=== PATIENT | male | born 1930 | race Caucasian/White ===

== ENCOUNTER → 2017-03-20 | Outpatient (CLI) | payer MEDICARE ==
[~2017-03-20] MED LIST: ASPI325 PO; Aspir 8181 MG PO; Avodart0.5 MG PO; CARV3.125 PO; CHOL10002 PO; FISH OIL 1,2001 EAC3 PO; GLUCOSAMINE-CH1 EA10 PO; IRON PO; LISI5 PO; LUTEIN6 MG PO; OXYC5 PO; POTASSIUM MAGNESIUM PO; PRED10 PO; SIMV40 PO; Saw Palmetto500 MG PO; TAMS.4ER PO; THERA1 EACH PO; TRILYTE; UBID10 PO; Vitamin B Comple1 EA PO
== END | disposition home or self-care (01) ==
LOC: LAB EV 10:03
DX: S61.001A Unspecified open wound of right thumb without damage to nail, initial encounter (principal)
CPT/HCPCS: 87070; 87075; 87077; 87186; 87205

== ENCOUNTER → 2017-10-13 | Outpatient (CLI) | payer MEDICARE ==
[~2017-10-13] MED LIST changes: -ASPI325 PO; -CHOL10002 PO; -FISH OIL 1,2001 EAC3 PO; +FISH1000 PO; -IRON PO; -LUTEIN6 MG PO; -OXYC5 PO; -POTASSIUM MAGNESIUM PO; -PRED10 PO; -THERA1 EACH PO; -Vitamin B Comple1 EA PO
== END | disposition home or self-care (01) ==
LOC: LAB SHORT 08:31 → PLD 08:31 → EDSTATUS 09:17
DX: L72.0 Epidermal cyst (principal)
CPT/HCPCS: 88304

== ENCOUNTER 2018-09-20 06:51 | Day surgery (SDC) | payer MEDICARE ==
[~2018-09-20] VITALS: Ht 185.4 cm; Wt 87.8 kg
[~2018-09-20 06:51] MED LIST changes: +CHOL10002 PO; +FISH OIL 1,2001 EAC3 PO; -FISH1000 PO; +IRON PO; +LUTEIN6 MG PO; +POTASSIUM MAGNESIUM PO; +THERA1 EACH PO; +Vitamin B Comple1 EA PO
--- NOTE | 2018-09-20 07:35 | NUR ---
Ambulatory in Day Surgery History, Chart, Medications and Allergies reviewed before start of procedure. Lungs clear T/O to Auscultation. Patient confirms NPO status and agrees with scheduled surgery. Pre-Op teaching done. Pt verbalizes understanding.
[2018-09-20] MEDS ORDERED: PRED10 PO (08:11)
--- NOTE | 2018-09-20 09:48 | NUR ---
09/20/18 0948 Alina Leroy PATIENT CONVERTED TO GENERAL ANESTHESIA D/T INABILITY TO REMAIN STILL DURING OPERATIVE PROCEDURE.
--- NOTE | 2018-09-20 11:52 | NUR ---
PT HAS POISEN OAK HE STATES FROM BURNING IT AT HOME SO HE IS ITCHING FACE FACE AND ARMS. PT WAS GIVEN A WASHCLOTH TO DO THIS.
--- NOTE | 2018-09-21 04:38 | NUR ---
SHIFT SUMMARY: PT POD #1 FOR RT TKA. A&O X4. VSS. BRIELLE WRAP CDI WITH POLAR PACK IN PLACE. PAIN MANAGED WITH TORADOL AND 10 MG OXY PER EMAR. PT REFUSING TYLENOL. AMBULATING WITH MINIMAL ASSIST USING FWW. PRISCILLA ACTIVITY WELL. SALINE LOCKED. PRISCILLA FLUIDS, DENIES N/V. PT STATES CHEEKS AND BILAT WRISTS RED R/T POISON OAK. DENIES ITCHING. VOIDING IN URINAL. ADEQUATE URINE OUTPUT. REPORTS SOME BLADDER DISCOMFORT. USING WARM PACK TO AREA FOR COMFORT.
[2018-09-21 05:10] LABS: BASOPHILS ABSOLUTE AUTO 0.01 K/mm3 (0.00-0.23); BASOPHILS PERCENT AUTO 0 % (0-2); EOSINOPHILS PERCENT AUTO 0 % (0-6); Hematocrit 38.2 % (37.0-53.0); Hemoglobin 12.6 g/dL (13.5-17.5); IMMATURE GRAN ABSOLUTE AUTO 0.03 K/mm3 (0.00-0.10); IMMATURE GRAN PERCENT AUTO 0 % (0-1); LYMPHOCYTES ABSOLUTE AUTO 0.43 K/mm3 (0.84-5.20); LYMPHOCYTES PERCENT AUTO 3 % (21-46); MONOCYTES ABSOLUTE AUTO 0.93 K/mm3 (0.16-1.47); MONOCYTES PERCENT AUTO 6 % (4-13); Mean Corpuscular HGB 32.1 pg (26.0-34.0); Mean Corpuscular Volume 97 fL (80-100); Mean Platelet Volume 11.1 fL (9.1-12.4); NEUTROPHILS ABSOLUTE AUTO 13.17 K/mm3 (1.96-9.15); NEUTROPHILS PERCENT AUTO 90 % (41-73); Platelet Count 130 K/mm3 (150-400); RDW Coefficient Variation 12.2 % (11.7-14.2); RDW Standard Deviation 43.9 fL (35.1-46.3); Red Blood Cell Count 3.93 M/mm3 (4.30-5.90); White Blood Cell Count 14.57 K/mm3 (4.00-11.30)
[2018-09-21 05:34] LABS: Anion Gap 6 mmol/L (6-16); Blood Urea Nitrogen 24 mg/dL (8-24); Bun/Creatinine Ratio 25.9 (12.0-20.0); CO2, Blood 29 mmol/L (21-32); Calcium, Blood 8.9 mg/dL (8.5-10.1); Chloride, Blood 104 mmol/L (98-108); Creatinine, Blood 0.93 mg/dL (0.60-1.20); Glomerular Filtration Rate >60 (60-); Glucose, Blood 126 mg/dL (70-99); Magnesium, Blood 2.1 mg/dL (1.6-2.4); Potassium, Blood 4.4 mmol/L (3.5-5.5); Sodium, Blood 139 mmol/L (136-145)
--- NOTE | 2018-09-21 14:12 | NUR ---
bladder scan shows >515ml. dr kendall aware. plan to poss dc pt with indwelling cath for office fu wednesday.
[2018-09-21] MEDS ORDERED: ASPI325 PO (15:16)
[2018-09-21] MEDS ORDERED: OXYC5 PO (15:18)
--- NOTE | 2018-09-21 16:04 | NUR ---
DISCHARGE PT CLEARED THERAPY, PAIN WELL MANAGED, BUT UNABLE TO VOID. PAL TO PLUG PER DR WHALEY. PT EDUCATED ON USE AND WAYS TO DECREASE INFECTION RISKS. PT REEDUCATED SEVERAL TIMES ON USING WALKER WITH ALL ACTIVITY. SPOUSE EDUCATED ON THIS WELL. SCRIPT GIVEN FOR OXYCODONE.
--- NOTE | 2018-09-26 14:08 | NUR ---
Went to patients home this am d/c crockett at 0800. Called to check on patient at 1256 reports voiding x3 this am without difficulty.
== END 2018-09-21 16:09 | disposition home or self-care (01) ==
LOC: ORSCMMR 06:51 → ORD 08:30 → SURS 13:17 → ORSCMMR 09-21 16:09 → SURS 09-21 16:09
PROVIDERS: Orthopaedic Surgery
PROC: 0SRC0J9 Replacement of Right Knee Joint with Synthetic Substitute, Cemented, Open Approach (ICD-10-PCS; principal; 2018-09-20 08:30)
DX: M17.11 Unilateral primary osteoarthritis, right knee (principal); I10 Essential (primary) hypertension; I25.10 Atherosclerotic heart disease of native coronary artery without angina pectoris; Z79.899 Other long term (current) drug therapy
CPT/HCPCS: 36415; 51701; 73560-RT; 80048; 83735; 85025; 86850; 86900; 86901; 88300; 97110; 97116; 97162; 97530; C1713; C1776; J0171; J0690; J0735; J1100; J1885; J2405; J2704; J2795; J3010; J7120; J7512

== ENCOUNTER 2020-08-24 11:12 | Observation (INO) | payer MEDICARE ==
[~2020-08-24] VITALS: Ht 188 cm; Wt 90.0 kg
[~2020-08-24 11:12] MED LIST changes: +ASPI325 PO; +OXYC5 PO; +PRED10 PO
[2020-08-24 11:45] LABS: BASOPHILS ABSOLUTE AUTO 0.04 K/mm3 (0.00-0.23); BASOPHILS PERCENT AUTO 1 % (0-2); EOSINOPHILS ABSOLUTE AUTO 0.11 K/mm3 (0.00-0.68); EOSINOPHILS PERCENT AUTO 3 % (0-6); Hematocrit 42.3 % (37.0-53.0); Hemoglobin 14.4 g/dL (13.5-17.5); IMMATURE GRAN ABSOLUTE AUTO 0.01 K/mm3 (0.00-0.10); IMMATURE GRAN PERCENT AUTO 0 % (0-1); LYMPHOCYTES ABSOLUTE AUTO 0.69 K/mm3 (0.84-5.20); LYMPHOCYTES PERCENT AUTO 17 % (21-46); MONOCYTES ABSOLUTE AUTO 0.41 K/mm3 (0.16-1.47); MONOCYTES PERCENT AUTO 10 % (4-13); Mean Corpuscular HGB 32.7 pg (26.0-34.0); Mean Corpuscular Volume 96 fL (80-100); Mean Platelet Volume 11.7 fL (9.1-12.4); NEUTROPHILS ABSOLUTE AUTO 2.71 K/mm3 (1.96-9.15); NEUTROPHILS PERCENT AUTO 68 % (41-73); Platelet Count 166 K/mm3 (150-400); RDW Coefficient Variation 12.5 % (11.7-14.2); RDW Standard Deviation 44.8 fL (35.1-46.3); White Blood Cell Count 3.97 K/mm3 (4.00-11.30)
[2020-08-24] MEDS ORDERED: Aspir 8181 MG PO (11:48)
[2020-08-24 12:06] LABS: Alanine Aminotransfer (ALT/SGP 29 U/L (12-78); Albumin, Blood 3.7 g/dL (3.4-5.0); Albumin/Globulin Ratio 1.2 (0.8-1.8); Alk Phos 57 U/L (50-136); Anion Gap 2 mmol/L (6-16); Aspartate Aminotrans (AST/SGOT 27 U/L (12-37); Bilirubin, Total 1.1 mg/dL (0.1-1.0); Blood Urea Nitrogen 30 mg/dL (8-24); Bun/Creatinine Ratio 29.7 (12.0-20.0); CO2, Blood 30 mmol/L (21-32); Chloride, Blood 106 mmol/L (98-108); Creatinine, Blood 1.01 mg/dL (0.60-1.20); Globulin, Blood 3.2 g/dL (2.2-4.0); Glomerular Filtration Rate >60 (60-); Glucose, Blood 105 mg/dL (70-99); Potassium, Blood 4.2 mmol/L (3.5-5.5); Sodium, Blood 138 mmol/L (136-145); Total Protein, Blood 6.9 g/dL (6.4-8.2); Troponin I <0.015 ng/mL (0.000-0.040)
--- NOTE | 2020-08-24 18:27 | NUR ---
89 YO M ARRIVES TO PCU FROM ER. SINUS BRADYCARDIA WITH PVC'S IN THE 50'S. [address] IN LEFT AC. A&O X 4, SPOUSE MONI IS PRESENT IN ROOM. PT CAN AMBULATE TO BATHROOM WITH STAND BY SUPERVISION WITH REMINDERS TO CHANGE POSITION SLOWLY. PT SATING > 92% ON RA. LUNGS LANDERS ARE CLEAR BILAT, BOWEL SOUNDS PRESENT IN ALL 4 QUADRANTS. LAST BM 08/23/20. PT AND SPOUSE ORIENTED TO ROOM. CALL LIGHT IN PLACE. WILL CONTINUE TO MONITOR, AND GIVE REPORT TO YARD HOSTLER NURSE.
[2020-08-25 04:05] LABS: BASOPHILS ABSOLUTE AUTO 0.05 K/mm3 (0.00-0.23); BASOPHILS PERCENT AUTO 1 % (0-2); EOSINOPHILS ABSOLUTE AUTO 0.17 K/mm3 (0.00-0.68); EOSINOPHILS PERCENT AUTO 3 % (0-6); Hematocrit 41.4 % (37.0-53.0); IMMATURE GRAN ABSOLUTE AUTO 0.01 K/mm3 (0.00-0.10); IMMATURE GRAN PERCENT AUTO 0 % (0-1); LYMPHOCYTES ABSOLUTE AUTO 0.95 K/mm3 (0.84-5.20); LYMPHOCYTES PERCENT AUTO 18 % (21-46); MONOCYTES ABSOLUTE AUTO 0.61 K/mm3 (0.16-1.47); MONOCYTES PERCENT AUTO 12 % (4-13); Mean Corpuscular HGB 31.9 pg (26.0-34.0); Mean Corpuscular HGB Conc 33.8 g/dL (31.5-36.5); Mean Corpuscular Volume 94 fL (80-100); Mean Platelet Volume 11.2 fL (9.1-12.4); NEUTROPHILS ABSOLUTE AUTO 3.53 K/mm3 (1.96-9.15); NEUTROPHILS PERCENT AUTO 66 % (41-73); Platelet Count 155 K/mm3 (150-400); RDW Coefficient Variation 12.4 % (11.7-14.2); RDW Standard Deviation 43.3 fL (35.1-46.3); Red Blood Cell Count 4.39 M/mm3 (4.30-5.90); White Blood Cell Count 5.32 K/mm3 (4.00-11.30)
[2020-08-25 05:07] LABS: Anion Gap 6 mmol/L (6-16); Blood Urea Nitrogen 31 mg/dL (8-24); Bun/Creatinine Ratio 29.8 (12.0-20.0); CO2, Blood 26 mmol/L (21-32); Chloride, Blood 107 mmol/L (98-108); Cholesterol 139 mg/dL (50-200); Creatinine, Blood 1.04 mg/dL (0.60-1.20); Glomerular Filtration Rate >60 (60-); Glucose, Blood 91 mg/dL (70-99); HDL Cholesterol 68 mg/dL (>39); LDL/HDL RATIO 0.8; Low Density Lipoprotein Chol 54 mg/dL (0-110); Potassium, Blood 4.1 mmol/L (3.5-5.5); Sodium, Blood 139 mmol/L (136-145); Triglycerides 86 mg/dL (30-160); Very Low Density Lipoprot Chol 17 mg/dL (6-32)
--- NOTE | 2020-08-25 06:07 | NUR ---
SHIFT SUMMARY NO ACUTE CHANGES THIS SHIFT. PT ALERT, ORIENTED TO SELF, FOLLOWING DIRECTIONS. HARD OF HEARING, SOME CONFUSION BUT REDIRECTABLE. SP02>92% ON RA. TELEMETRY READS SR/SB W/ PACS AND PVCS. HR HIGH 40'S-60'S. PT DENIES CP/PRESSURE. PT STOOD AND USED URINAL AT BEDSIDE. PT SLEPT T/O NIGHT, REMAINS NPO FOR STRESS TEST IN AM. CALL LIGHT IN REACH. WILL GIVE REPORT TO ONCOMING NURSE.
--- NOTE | 2020-08-25 17:11 | NUR ---
SHIFT SUMMARY; ASSUMED CARE AT 0700, REPORT FROM [place]. FIRST PORTION STRESS TEST TODAY. NPO AFTER MIDNIGHT FOR SECOND PART TOMORROW. INDEPENDANT IN ROOM, NO SOB, SINUS SYLVIA 50-70 DURING SHIFT. SPOUSE AT BEDSIDE IN AFTERNOON. A/A/OX4. WILL CONTINUE TO MONITOR AND TREAT UNTIL CHANGE OF SHIFT.
--- NOTE | 2020-08-26 05:58 | NUR ---
SHIFT SUMMARY PATIENT FOUND TO BE A PLEASANT GENTLEMAN WHO IS A&OX4, FOLLOWING COMMANDS, AND UP AD JEFE IN ROOM. VSS. SR/SB ON THE MONITOR WITH FREQUENT PVC'S. NO CHEST PAIN OR PRESSURE NOTED UPON ASSESSMENT. ON RA. GOOD APPETITE AND NPO AFTER 0000 FOR 2ND STRESS TEST TODAY. VOIDING WELL IN BATHROOM. SLEPT WELL THROUGHOUT SHIFT. NO ACUTE CONCERNS AND ALL PATIENT QUESTIONS ANSWERED AT THIS TIME. WILL CONTINUE TO MONITOR.
--- NOTE | 2020-08-26 09:15 | NUR ---
PT ALERT AND ORIENTED X4. ON ROOM AIR SATING ABOVE 92%. TELE SHOWING SINUS WITH PVC'S AND HR 70-80'S. DENIES CHEST PAIN/PRESSURE. DENIES OVERALL PAIN. VITAL SIGNS STABLE. CALL PLACED TO [facility], TO CONFIRM STRESS TEST COMPLETION. PT ABLE TO EAT BREAKFAST AND SHOWER THIS AM. FRAGILE SKIN WITH BRUISING THROUGHOUT. IV SALINE LOCKED AND FLUSHING WELL. USING URINAL TO VOID. SCD'S IN PLACE. WILL CONTINUE TO MONITOR.
--- NOTE | 2020-08-26 12:31 | NUR ---
PT DISCHARGED AT 1222. IN TO PICK PATIENT UP. NO ACUTE CHANGES. VITAL SIGNS STABLE. IV REMOVED PER PROTOCOL. DISCHARGE INSTRUCTIONS REVIEWED AND QUESTIONS ANSWERED. PT SENT HOME WITH ALL BELONGINGS. TAKEN OUT TO CAR VIA WHEELCHAIR. DISCHARGING HOME.
== END 2020-08-26 12:30 | disposition home or self-care (01) ==
LOC: ER 11:12 → PCU 11:13 → ENPENDDIS 08-26 10:35 → PCU 08-26 12:30
PROVIDERS: Emergency Medicine; ADMIT Internal Medicine
DX: R07.89 Other chest pain (principal); I25.10 Atherosclerotic heart disease of native coronary artery without angina pectoris; I50.32 Chronic diastolic (congestive) heart failure; N40.0 Benign prostatic hyperplasia without lower urinary tract symptoms; E78.5 Hyperlipidemia, unspecified; M81.0 Age-related osteoporosis without current pathological fracture; I49.5 Sick sinus syndrome; Z95.5 Presence of coronary angioplasty implant and graft
CPT/HCPCS: 36415; 71046; 71260; 78452; 80048; 80053; 80061; 82550; 83036; 83880; 84439; 84443; 84484; 85025; 85379; 93005; 93010; 93017; 99285-25; A9270; A9500; G0378; J0706; J2785; Q9967